=== PATIENT | female | born 1980 | race Caucasian/White ===

== ENCOUNTER → 2017-07-30 | Outpatient (CLI) | payer MEDICAID ==
[~2017-07-30] MED LIST: EFFEXOR XR 75MG75 MG PO; FLEXERIL10 MG PO; LISINOPRIL40 MG PO; PERCOCET 10 MG1 EACH PO; TOPIRAMATE 25MG25 MG PO; TRAZODONE100 MG PO
--- NOTE | 2017-08-01 11:49 | RADIOLOGY REPORT PS360 ---
DIG MAMM-SCREEN DAVONTE W/CAD CAD Screening COMPARISON: Digital mammograms 02/28/2016 and ultrasound left breast 03/16/2016 INDICATION: There is a history of breast cancer patient's great aunt and grandmother. TECHNIQUE: Standard CC and MLO images were obtained. R2 CAD reviewed. FINDINGS: Moderate fibroglandular densities are seen in both breast bilaterally upper outer quadrants. Again noted are nodular densities left breast which were evaluated with ultrasound previously and shown to be complicated cysts. There are stable asymmetric density near the axillary tail right breast and this likely is an intramammary node. There is no new or suspicious lesion in either breast and no suspicious microcalcifications. However since the previous mammogram is the baseline study and in view of family history of breast cancer recommend patient have another ultrasound left breast to assure stability of the patient's cystic lesions seen on the previous ultrasound. IMPRESSION: Basically stable exam, recommend follow-up ultrasound left breast as described above BI-RADS CATEGORY: 0_Incomplete: Need additional imaging RECOMMENDED FOLLOWUP: USB ULTRASOUND-BREAST (A letter has been sent to the patient regarding results of the study.)
== END ==
LOC: RAD 07-26 17:00
DX: Z12.31 Encounter for screening mammogram for malignant neoplasm of breast (principal)
CPT/HCPCS: G0202

== ENCOUNTER → 2017-10-12 | Outpatient (CLI) | payer MEDICAID ==
--- NOTE | 2017-10-23 13:47 | RADIOLOGY REPORT PS360 ---
US BREAST-LT COMPLETE W/AXILLA COMPARISON: Ultrasound left breast 03/16/2016 HISTORY: Follow-up cystic lesions left breast TECHNIQUE: Targeted ultrasound left breast FINDINGS: Again noted is an oval hypoechoic cystic-appearing lesion at the 2:00 position outer breast which appears to show faint internal echoes and this appears be stable and unchanged in size in the previous exam. There is a hypoechoic cystic-appearing lesion at the 3 clock position which is stable and unchanged in size and in fact may be somewhat smaller than on the previous exam. This appears to represent a small cyst and shows no internal echoes. There is a somewhat larger oval hypoechoic lobulated lesion at the 4:00 position which actually appears to be 2 small cyst adjacent to one another and these appear to be smaller than on the previous exam as well. There is no suspicious solid lesion. There are couple normal-sized nodes in the axilla. IMPRESSION: Benign-appearing cystic lesions left breast at least 2 of which have shown decrease in size, one of which likely is a complex cyst with faint internal echoes and with no new or suspicious solid lesions seen. Recommend the patient continue with yearly screening mammography
== END ==
LOC: RAD 15:00
DX: R92.8 Other abnormal and inconclusive findings on diagnostic imaging of breast (principal)